=== PATIENT | female | born 2000 | race Caucasian/White ===

== ENCOUNTER 2021-10-02 20:36 | Emergency (ER) | payer SELFPAY ==
[~2021-10-02 20:36] MED LIST: Iopamidol 300 61% 100 ML VIAL FS ONE
[2021-10-02] MEDS ORDERED: Ondansetron PF 4 MG/2 ML Vial ONE (21:02)
[2021-10-02] MEDS ORDERED: Morphine 4 MG/ML VIAL ONE (21:02)
[2021-10-02 21:06] LABS: Bilirubin Neg (Negative); Blood, Urine 250 (Negative); Clarity Slightly Cloudy (Clear); Glucose, Urine (Dipstick) Normal (Negative); Ketone, Urine Negative (Negative); Leukocyte 100 (Negative); Nitrite Negative (Negative); Protein, Urine (Dipstick) 30 mg/dl (Neg-Trace); Urobilinogen Normal mg/dL (Less than 2)
[2021-10-02 21:06] LABS: #Basophils 0.1 10x3/uL (0.0-0.2); #Eosinphils 0.3 10x3/uL (0.0-0.5); #Monocytes 0.7 10x3/uL (0.0-1.1); #Neutrophils 6.6 10x3/uL (1.5-8.4); %Basophils 0.6 % (0.0-2.0); %Eosinophils 2.5 % (0.0-6.0); %Lymphocytes 30.2 % (18.0-47.0); %Monocytes 6.6 % (0.0-10.0); %Neutrophils 59.8 % (40.0-75.0); Hemoglobin 11.3 g/dL (12.0-15.5); Mean Corpuscular HGB CONC 31.8 g/dL (32.0-36.0); Mean Corpuscular Hemoglobin 20.1 pg (27.0-33.0); Mean Corpuscular Volume 63.2 fl (81.6-98.3); Platelet Count 326 10x3/uL (150-450); RBC Distribution Width 15.5 % (11.5-14.5); Red Blood Cell (RBC) Count 5.62 10x6/uL (3.90-5.03); White Blood Cell (WBC) Count 11.1 10x3/uL (3.5-10.5)
[2021-10-02 21:08] LABS: Pregnancy Test - Urine (BHCG) Negative (Negative); Pregu Control Background? CLEAR/WHITE (CLR/WHITE); Pregu Control Bar Appear? YES (CONTROL BAR)
[2021-10-02 21:16] LABS: Bacteria/HPF 3+ HPF (None Seen); Mucous/LPF Rare LPF (<2+); RBC/HPF Greater than 50 HPF (0-3); Squamous Epithelial 0-3 HPF (0-3); WBC/HPF 0-3 HPF (0-3)
[2021-10-02 21:20] LABS: ALT (SGPT) 45 U/L (8-55); AST (SGOT) 22 U/L (5-34); Albumin 4.3 g/dL (3.5-5.0); Alkaline Phosphatase 154 U/L (40-110); Anion Gap 14 mmol/L (10-20); BUN (Urea Nitrogen) 13 mg/dL (7.0-18.7); Bilirubin, Total 0.4 mg/dL (0.2-1.2); Calc. Creatinine Clearance 0 mL/min (70-130); Calcium 9.5 mg/dL (7.8-10.44); Carbon Dioxide 25 mmol/L (22-29); Chloride 106 mmol/L (98-107); Estimated GFR 107; Globulin 3.2 g/dL (2.4-3.5); Glucose 90 mg/dL (70-105); Lipase 48 U/L (8-78); Potassium 3.8 mmol/L (3.5-5.1); Protein, Total 7.5 g/dL (6.0-8.3); Sodium 141 mmol/L (136-145)
[2021-10-02 21:25] LABS: BHCG - Serum Negative (NEGATIVE); Pregs Control Background? CLEAR/WHITE (CLR/WHITE); Pregs Control Bar Appear? YES (CONTROL BAR)
[2021-10-02 22:03] LABS: Tear Drops SLIGHT = 2-5 cells (100X) (0-1/hpf)
[2021-10-02 22:10] LABS: Schistocytes SLIGHT = 2-5 cells (100X) (0-1/hpf)
[2021-10-02 22:11] LABS: Hypochromia SLIGHT = 6-15 cells (100X) (0-5/hpf); Target Cells SLIGHT = 2-5 cells (100X) (0-1/hpf)
[2021-10-02 22:12] LABS: Anisocytosis SLIGHT = 6-15 cells (100X) (0-5/hpf)
[2021-10-02 22:13] LABS: Platelet Morphology Comment Appears Adequate
[2021-10-02] MEDS ORDERED: HYDROcodone/Acetaminophen 5/325 mg Tablet ONE (23:48)
== END 2021-10-02 23:51 | disposition home or self-care (01) ==
LOC: CSHERS 20:36
DX: R10.13 Epigastric pain (principal); R16.1 Splenomegaly, not elsewhere classified; F17.210 Nicotine dependence, cigarettes, uncomplicated
CPT/HCPCS: 36415; 74177; 76705; 80053; 81003; 81015; 81025; 83690; 84703; 85025; 96374; 96375; J2270; J2405; Q9967